=== PATIENT | female | born 1990 | race Caucasian/White ===

== ENCOUNTER 2019-05-05 13:15 | Emergency (ER) | payer SELFPAY ==
[2019-05-05] MEDS ORDERED: NS 0.9% 1000 ML** 1,000 ML IV ONE (13:22)
--- NOTE | 2019-05-05 13:26 | ED ---
Substance Abuse/Use - HPI Summary HPI Summary: This patient is a 16 year old female brought in by EMS presenting to [facility] with a chief complaint of heroin overdose. She was found unresponsive in her car with another individual. She was administered Narcan X3 by EMS and she did not become responsive until arrival to the ED. EMS administered oxygen. She states she snorted the heroin and did not ingest any other substances or ETOH today. She denies chest pain. Patient is apparently from the [facility]. Medications reviewed, allergies noted. - History Of Current Complaint Stated Complaint: OVERDOSE Time Seen by Provider: 05/05/19 13:17 Hx Obtained From: Patient Ingestion History: Type/Name Of Drug - Heroin Overdose Characteristics: Inhalation - Allergies/Home Medications Home Medications: Home Medications Unobtainable 05/05/19 [History Confirmed 05/05/19] PMH/Surg Hx/FS Hx/Imm Hx Endocrine/Hematology History: Denies: Hx Diabetes Cardiovascular History: Denies: Hx Coronary Artery Disease - Family History Known Family History: Negative: Seizure Disorder - Social History Alcohol Use: Occasionally Substance Use Type: Reports: Heroin Review of Systems Negative: Chest Pain Psychological: Other - Overdose All Other Systems Reviewed And Are Negative: Yes Physical Exam - Summary Physical Exam Summary: Constitutional: Well-developed, Well-nourished, moans to respond to verbal cues , answers questions appropriately. Skin: Warm, Dry HENT: Normocephalic; Atraumatic Eyes: Conjunctiva normal Neck: Musculoskeletal ROM normal neck. (-) JVD, (-) Stridor, (-) Tracheal deviation Cardio: Rhythm regular, rate normal, Heart sounds normal; Intact distal pulses; Radial pulses are 2+ and symmetric. (-) Murmur Pulmonary/Chest wall: Effort normal. (-) Respiratory distress, (-) Wheezes, (-) Rales Abd: Soft, (-) tenderness, (-) Distension, (-) Guarding, (-) Rebound Musculoskeletal: (-) Edema Lymph: (-) Cervical adenopathy Neuro: Patient intoxicated from overdose. Can moan to respond to verbal cues and answer questions. Psych: Mood and affect Normal Triage Information Reviewed: Yes Vital Signs On Initial Exam: Temp Pulse Resp BP Pulse Ox 98.3 F 77 22 100/71 100 05/05/19 13:16 05/05/19 14:21 05/05/19 13:20 05/05/19 14:21 05/05/19 14:21 Vital Signs Reviewed: Yes Procedures - Sedation Patient Received Moderate/Deep Sedation with Procedure: No Diagnostics - Laboratory Result Diagrams: 05/05/19 13:35 05/05/19 13:35 Lab Statement: Any lab studies that have been ordered have been reviewed, and results considered in the medical decision making process. - Radiology CXR Radiology Interpretation Completed By: Radiologist Summary of Radiographic Findings: No active cardiopulmonary disease. ED Provider has reviewed this report. - EKG 1327 Cardiac Rate: NL - 86 BPM EKG Rhythm: Sinus Rhythm Summary of EKG Findings: No STEMI. ED Physician has reviewed and interpreted this adult EKG. Re-Evaluation - Re-Evaluation First Eval Re-Evaluation Time: 13:30 Comment: As she was getting undressed many Gabapentin tablets were found in her crotch. Second Eval Re-Evaluation Time: 15:43 Change: Improved Comment: Patient is up and talking, she is not yet fully alert. Third Eval Re-Evaluation Time: 16:41 Change: Improved Comment: The patient knows where she is but does not have a place to stay tonight. Course/Dx - Course Course Of Treatment: Patient is here with an opiate overdose. Patient received 1.2 mg Narcan via EMS. Patient was somnolent but arousable upon arrival here. Patient had a workup performed which showed positive UDS for opiates and cocaine. Patient did have gabapentin on herself as well. Patient was monitored until she was able to ambulate. lithography contact worker was called and called the banking officer who came and picked patient up. - Diagnoses Provider Diagnoses: Heroin overdose - Critical Care Time Critical Care Time: 30-74 min - 35 mins Discharge ED - Sign-Out/Discharge Documenting (check all that apply): Patient Departure - Discharge - Discharge Plan Condition: Stable Disposition: HOME Patient Education Materials: Adult Overdose (ED) Referrals: [facility] [Outside] [facility] [Z.BUSINESS, APPLICATION, OTHER] - [facility] [Outside] - Billing Disposition and Condition Condition: STABLE Disposition: Home - Attestation Statements Document Initiated by Scribe: Yes Documenting Scribe: Delfino Jhaveri Provider For Whom Scribe is Documenting (Include Credential): Abelardo Velazquez MD Scribe Attestation: I, Delfino Jhaveri, scribed for Abelardo Velazquez MD on 05/05/19 at 1722. Scribe Documentation Reviewed: Yes Provider Attestation: The documentation as recorded by the scribe, Delfino Jhaveri accurately reflects the service I personally performed and the decisions made by me, Abelardo Velazquez MD Status of Scribe Document: Viewed
[2019-05-05 13:42] LABS: Hematocrit 42 % (40-57); Hemoglobin 14.7 g/dL (14.5-22.5); Mean Corpuscular HGB Conc 35 g/dL (29-37); Mean Corpuscular Hemoglobin 32 pg (31-37); Mean Corpuscular Volume 92 fL (95-121); Mean Platelet Volume 7.4 fL (7.4-10.4); Platelet Count 236 10^3/uL (150-450); Red Blood Count 4.61 10^6 /uL (4.12-5.74); Red Cell Distribution Width 13 % (10-15); White Blood Count 6.6 10^3/uL (9.0-38.0)
[2019-05-05 13:50] LABS: ABS Lymphocytes 0.7 10^3/ul (2.0-11.0); ABS Monocytes 0.3 10^3/ul (0-0.8); ABS Neutrophils 5.7 10^3/ul (6.0-26.0)
[2019-05-05 14:04] LABS: ALT 26 U/L (7-52); AST 54 U/L (13-39); Albumin 4.5 g/dL (3.2-5.2); Albumin/Globulin Ratio 1.6 (1-3); Alkaline Phosphatase 53 U/L (34-104); Anion Gap 11 mmol/L (2-11); BUN/Creatinine Ratio 13.3 (8-20); Blood Urea Nitrogen 15 mg/dL (6-24); CO2 Carbon Dioxide 28 mmol/L (22-32); Calcium 9.4 mg/dL (8.6-10.3); Chloride 101 mmol/L (101-111); EGFR African American 69.4 (>60); EGFR Non-African American 57.3 (>60); Globulin 2.8 g/dL (2-4); Glucose 115 mg/dL (70-100); Potassium 4.7 mmol/L (3.5-5.0); Sodium 140 mmol/L (135-145); Total Protein 7.3 g/dL (6.4-8.9)
[2019-05-05 14:11] LABS: HCG Pregnancy < 0.60 mIU/mL
[2019-05-05 14:12] LABS: Acetaminophen < 15 mcg/mL; Alcohol < 10 mg/dL (<10); Salicylate < 2.50 mg/dL (<30)
[2019-05-05 15:21] LABS: Urine Benzodiazepine Screen None Detected (None Detect); Urine Opiates Screen Presumptive Positive (None Detect)
[2019-05-05] MEDS ORDERED: Acetaminophen TAB* 325 MG PO ONE (17:53)
[2019-05-05 18:16] VITALS: BP 96/65
== END 2019-05-05 18:09 | disposition home or self-care (01) ==
LOC: ED 13:15
DX: T40.1X1A Poisoning by heroin, accidental (unintentional), initial encounter (principal); Y92.9 Unspecified place or not applicable
CPT/HCPCS: 36415; 71045; 80053; 80307; 80320; 80329; 84702; 85025; 93005; 99285; A9270-GY; G0480